=== PATIENT | male | born 1980 | race Caucasian/White ===

== ENCOUNTER → 2019-03-01 | Outpatient (CLI) | payer BC ==
[2019-03-01 07:49] LABS: HCT 42.3 % (39.0-53.0); HGB 13.8 gm/dL (13.0-17.5); MCH 29.2 pg (25.0-35.0); MCHC 32.6 g/dL (31.0-37.0); MCV 89.6 fL (80.0-100.0); Mean Platelet Volume 7.1; Platelet Count 249 k/uL (150-450); RBC 4.72 m/uL (4.30-5.90); RDW 12.3 % (11.5-15.5); WBC 5.3 k/uL (3.8-10.6)
[2019-03-01 12:41] LABS: African American GFR (CKD) 129.5 (60.0-200.0); Albumin 4.6 g/dL (3.80-4.90); Albumin/Globulin Ratio 2.56 (1.60-3.17); BUN/Creat Ratio 11.25 Ratio (12.00-20.00); Calcium 9.5 mg/dL (8.7-10.3); Chol/HDL Ratio 3.99; Globulin 1.8 g/dL (1.6-3.3); LDL Cholesterol,Calculated 174.8 mg/dL (0.0-131.0); Non-African American GFR(CKD) 111.7 (60.0-200.0); Potassium 4.1 mmol/L (3.5-5.5); Total Bilirubin 0.8 mg/dL (0.2-1.2); Total Protein 6.4 g/dL (6.2-8.2); VLDL Calculation 25.2 mg/dL (5.00-40.00)
== END | disposition home or self-care (01) ==
LOC: LABWHC1 07:09
DX: Z00.00 Encounter for general adult medical examination without abnormal findings (principal)
CPT/HCPCS: 36415; 80053; 80061; 85027